=== PATIENT | female | born 1985 | race Caucasian/White ===

== ENCOUNTER 2016-09-21 04:42 | Emergency (ER) | payer OTHER | END 2016-09-21 05:32 | disposition home or self-care (01) | LOC: FER 04:42 | DX: J20.9 Acute bronchitis, unspecified (principal) | CPT/HCPCS: 71020; 94640; 94664; 99283 ==

== ENCOUNTER 2021-07-26 21:34 | Emergency (ER) | payer OTHER ==
[2021-07-26 23:03] LABS: BASOPHIL 0.9 % (0-2); EOSINOPHIL 3.2 % (0-5); HCT 43.2 % (37.0-47.0); HGB 14.6 g/dl (12.5-16.0); LYMPHOCYTE 31.8 % (15-48); MCH 29.7 pg (25.0-31.0); MCHC 33.8 g/dL (32.0-36.0); MCV 87.8 fL (78.0-100.0); MONOCYTE 8.3 % (0-12); MPV 9.9 fL (6.0-9.5); NEUTROPHIL 55.3 % (41-80); NRBC 0; PLT 322 K/uL (150-400); RBC 4.92 M/uL (4.20-5.40); RDW 14.3 % (11.5-14.0); WBC 13.1 K/uL (4.0-10.5)
[2021-07-26 23:29] LABS: ALBUMIN 3.6 g/dL (3.4-5.0); BILIRUBIN - TOTAL 0.2 mg/dL (0.2-1.0); BUN/CREAT RATIO (CALC) 12.2 RATIO; CREATININE 0.74 mg/dL (0.51-0.95); GLOBULIN (CALCULATION) 3.9 g/dL; POTASSIUM 3.6 mmol/L (3.5-5.1); TOTAL PROTEIN 7.5 g/dL (6.4-8.2)
[2021-07-27] MEDS ORDERED: PREDNISONE 20MG20 MG PO (04:03)
[2021-07-27] MEDS ORDERED: AMOX TR-K CLV1 EAC4 PO (04:03)
== END 2021-07-27 04:15 | disposition home or self-care (01) ==
LOC: FER 21:34
PROVIDERS: Internal Medicine
DX: R51.9 Headache, unspecified (principal); R22.0 Localized swelling, mass and lump, head; I10 Essential (primary) hypertension; E11.9 Type 2 diabetes mellitus without complications; Z79.84 Long term (current) use of oral hypoglycemic drugs; Z79.899 Other long term (current) drug therapy
CPT/HCPCS: 36415; 70450; 70491; 80053; 83735; 84145; 84439; 84443; 85025; 86140; J1100; Q9967